=== PATIENT | female | born 1995 | race Caucasian/White ===

== ENCOUNTER 2017-05-13 00:14 | Emergency (ER) | payer OTHER ==
[2017-05-13 01:28] VITALS: BP 133/80
== END 2017-05-13 01:28 | disposition home or self-care (01) ==
LOC: ED 00:14
DX: S61.217A Laceration without foreign body of left little finger without damage to nail, initial encounter (principal); W25.XXXA Contact with sharp glass, initial encounter; Y93.E9 Activity, other interior property and clothing maintenance; Y99.8 Other external cause status; Y92.89 Other specified places as the place of occurrence of the external cause